=== PATIENT | male | born 1985 | race Two or more races ===

== ENCOUNTER 2019-04-19 12:08 | Inpatient (IN) | payer OTHER ==
[~2019-04-19] VITALS: Ht 182.9 cm; Wt 105.1 kg
[~2019-04-19 12:08] MED LIST: CEFAZOLIN 1,000 MG ONE; DEXAMETHASONE 4 MG/ML, 1ML ONE; ONDANSETRON 2MG/ML, 2ML ONE; PROPOFOL 10 MG/ML, 20ML ONE; ROCURONIUM 10MG/ML,5ML ONE; SUCCINYLCHOLINE 20 MG/ML, 10ML ONE
--- NOTE | 2019-04-19 12:34 | NUR ---
BIB BY EMS FROM [facility] C/O RLQ ABD PAIN SINCE 04/17 WITH N/V AT THAT TIME BUT NO N/V TODAY. [employer]PERATOR AT BEDSIDE. PT OOB AND CHANGED INTO GOWN, VSS, PAIN 05/19. CALL LIGHT W/I REACH. DR. AMOS AT BEDSIDE, ASSESSMENT REVIEWED AND POC DISCUSSED. QUESTIONS ANSWERED.
[2019-04-19] MEDS ORDERED: MORPHINE SULFATE 4 MG/ML, 1ML IVPush PRN ×2 (13:00→15:30)
[2019-04-19] MEDS ORDERED: ONDANSETRON 2MG/ML, 2ML IVPush ONE (13:00)
[2019-04-19] MEDS ORDERED: SODIUM CHLORIDE FLUSH 10ML SYR IVF ONE (13:00)
[2019-04-19 13:15] LABS: MICROSCOPIC NOT IND
[2019-04-19 13:16] LABS: BASOPHILS # (AUTO) 0.02 x10^3/uL (0-0.1); BASOPHILS % (AUTO) 0 % (0-1); EOSINOPHILS # (AUTO) 0.03 x10^3/uL (0-0.4); EOSINOPHILS % (AUTO) 0 % (1-7); LYMPHOCYTES # (AUTO) 0.49 x10^3/uL (1-3.4); LYMPHOCYTES % (AUTO) 4 % (22-44); MD NO; MEAN CORPUSCULAR HEMOGLOBIN 29.4 pg (27.5-34.5); MEAN CORPUSCULAR HGB CONC 32.7 g/dL (33.2-36.2); MEAN CORPUSCULAR VOLUME 89.9 fL (81-97); MEAN PLATELET VOLUME 9.2 fL (7.4-10.4); MONOCYTES % (AUTO) 5 % (2-9); NEUTROPHILS % (AUTO) 91 % (42-75); PLATELET COUNT 188 x10^3/uL (130-400); RED BLOOD COUNT 5.37 x10^6/uL (4.38-5.82)
[2019-04-19 13:21] LABS: CULTURE INDICATED? NO
[2019-04-19 13:23] LABS: ALBUMIN 4.2 g/dL (3.4-5.0); ANION GAP 5 mmol/L (5-15); CALCIUM 8.8 mg/dL (8.5-10.1); CHLORIDE 108 mmol/L (98-107)
[2019-04-19 13:27] LABS: ALANINE AMINOTRANSFERASE 28 U/L (12-78); ALKALINE PHOSPHATASE 69 U/L (45-117); TOTAL PROTEIN 7.6 g/dL (6.4-8.2)
[2019-04-19] MEDS ORDERED: IBUPROFEN 800 MG TABLET ONE (13:29)
[2019-04-19] MEDS ORDERED: ONDANSETRON 2MG/ML, 2ML ONE (13:42)
[2019-04-19] MEDS ORDERED: MORPHINE SULFATE 4 MG/ML, 1ML ONE (13:42)
[2019-04-19] MEDS ORDERED: OMNIPAQUE 350 MG/ML, 100ML BOTTLE ONE (14:06)
--- NOTE | 2019-04-19 14:23 | NUR ---
RECEIVED REPORT FROM JOBY SMITH AND ASSUMED CARE OF PT. PT RETURNING FROM CT. PT HAD BEEN MEDICATED PRIOR TO GOING TO CT AND STATES PAIN NOW A 2/10. PT IN CUSTODY WITH DEPUTY AT BEDSIDE.
[2019-04-19] MEDS ORDERED: PLEASE ENTER ALLERGIES MC SCH (14:30)
[2019-04-19] MEDS ORDERED: CEFOTETAN PMX 1GM/50ML 50 ML IV ONE (14:30)
[2019-04-19] MEDS ORDERED: CEFOTETAN PMX 1GM/50ML 50 ML ONE (14:30)
--- NOTE | 2019-04-19 15:27 | NUR ---
REPORT GIVEN TO COLIN SMITH IN OR.
[2019-04-19] MEDS ORDERED: BUPIVACAINE/EPI 0.5% 1:200K ONE (15:50)
[2019-04-19] MEDS ORDERED: FENTANYL PF 250 MCG/5ML ONE (16:04)
[2019-04-19] MEDS ORDERED: MIDAZOLAM 1 MG/ML, 2ML ONE (16:04)
[2019-04-19] MEDS ORDERED: ONDANSETRON 2MG/ML, 2ML IVPush PRN (17:00)
[2019-04-19] MEDS ORDERED: HYDROmorphone 1 MG/ML, 1ML INJ IV PRN (17:00)
[2019-04-19] MEDS ORDERED: METOCLOPRAMIDE 5 MG/ML, 2ML IV PRN (17:00)
[2019-04-19] MEDS ORDERED: OXYcodone 5 MG/5 ML ORAL.SOL UDC PO PRN (17:00)
[2019-04-19] MEDS ORDERED: KETOROLAC 30 MG/1 ML IV PRN (17:00)
[2019-04-19] MEDS ORDERED: PROMETHAZINE 25 MG/ML, 1ML IV PRN (17:00)
[2019-04-19] MEDS ORDERED: ALBUTEROL SULFATE 2.5 MG/3 ML NPPB PRN (17:00)
[2019-04-19] MEDS ORDERED: LABETALOL 5MG/ML, 20ML IV PRN (17:00)
[2019-04-19] MEDS ORDERED: hydrALAzine 20 MG/ML, 1ML IV PRN (17:00)
[2019-04-19] MEDS ORDERED: MEPERIDINE/PF 25MG/0.5ML IVPush PRN (17:00)
[2019-04-19] MEDS ORDERED: MEPERIDINE/PF 25MG/ML,1ML ONE (17:06)
[2019-04-19] MEDS ORDERED: KETOROLAC 30 MG/1 ML ONE (17:20)
[2019-04-19] MEDS ORDERED: FENTANYL PF 100 MCG/2ML ONE (17:20)
[2019-04-19] MEDS ORDERED: OXYcodone 5 MG/5 ML ORAL.SOL UDC ONE (17:21)
[2019-04-19] MEDS: FENTANYL PF 100 MCG/2ML IV PRN ×2 (17:26→17:33)
[2019-04-19] MEDS ORDERED: D5%-0.45NACL+KCL 20MEQ 1,000 ML IV SCH (18:23)
[2019-04-19 18:33] VITALS: BP 100/59
[2019-04-19] MEDS ORDERED: METRONIDAZOLE PMX 500MG/100ML 100 ML IV SCH (19:00)
[2019-04-19] MEDS ORDERED: ONDANSETRON 2MG/ML, 2ML IV PRN (19:00)
[2019-04-19] MEDS ORDERED: HYDROcodone/APAP 5/325 TABLET PO PRN (19:00)
[2019-04-19] MEDS ORDERED: LORazepam 1MG TABLET PO PRN (19:00)
[2019-04-19] MEDS ORDERED: LORazepam 2 MG/ML, 1ML IV PRN (19:00)
[2019-04-19] MEDS ORDERED: morphine SULFATE 10 MG/ML, 1ML IV PRN (19:00)
[2019-04-19] MEDS ORDERED: HYDROmorphone 2 MG/ML, 1ML IV PRN (19:30)
[2019-04-19] MEDS: POTASSIUM CHLORIDE 20 MEQ in LACTATED RINGERS 1,000 ML IV SCH (21:17)
[2019-04-19 23:56] VITALS: BP 100/58
[2019-04-20] MEDS: OXYcodone/APAP 5/325MG TABLET PO PRN ×3 (01:35→12:05)
[2019-04-20 01:54] VITALS: BP 101/57
[2019-04-20] MEDS ORDERED: CEFOTETAN PMX 1GM/50ML 50 ML IV SCH (03:00)
[2019-04-20] MEDS ORDERED: CEFTRIAXONE PMX 1GM/50ML 50 ML IV SCH (03:00)
[2019-04-20 05:46] LABS: BASOPHILS # (AUTO) 0.03 x10^3/uL (0-0.1); BASOPHILS % (AUTO) 0 % (0-1); EOSINOPHILS # (AUTO) 0.05 x10^3/uL (0-0.4); EOSINOPHILS % (AUTO) 0 % (1-7); LYMPHOCYTES # (AUTO) 0.89 x10^3/uL (1-3.4); LYMPHOCYTES % (AUTO) 7 % (22-44); MD NO; MEAN CORPUSCULAR HEMOGLOBIN 30.1 pg (27.5-34.5); MEAN CORPUSCULAR HGB CONC 33.2 g/dL (33.2-36.2); MEAN CORPUSCULAR VOLUME 90.5 fL (81-97); MEAN PLATELET VOLUME 9.6 fL (7.4-10.4); MONOCYTES # (AUTO) 0.66 x10^3/uL (0.2-0.8); MONOCYTES % (AUTO) 5 % (2-9); NEUTROPHILS # (AUTO) 10.95 x10^3/uL (1.8-6.8); NEUTROPHILS % (AUTO) 87 % (42-75); PLATELET COUNT 152 x10^3/uL (130-400); RED BLOOD COUNT 4.66 x10^6/uL (4.38-5.82)
[2019-04-20] MEDS ORDERED: ENOXAPARIN 40 MG/0.4 ML SQ SCH (06:00)
[2019-04-20 06:28] VITALS: BP 102/64
[2019-04-20] MEDS: POTASSIUM CHLORIDE 20 MEQ in LACTATED RINGERS 1,000 ML IV SCH (09:00)
[2019-04-20 12:28] VITALS: BP 116/71
== END 2019-04-20 13:35 | disposition home or self-care (01) | DRG 342 ==
LOC: ED 15:09 → EDIP 16:11 → 4NOR 18:15
PROVIDERS: ADMIT Hospitalist; ATTEND Hospitalist
PROC: 0DTJ4ZZ Resection of Appendix, Percutaneous Endoscopic Approach (ICD-10-PCS; principal; 2019-04-19 15:45)
DX: K35.80 Unspecified acute appendicitis (principal); R65.10 Systemic inflammatory response syndrome (SIRS) of non-infectious origin without acute organ dysfunction; J98.11 Atelectasis; F17.200 Nicotine dependence, unspecified, uncomplicated; K59.00 Constipation, unspecified; D72.829 Elevated white blood cell count, unspecified; F10.10 Alcohol abuse, uncomplicated; Z72.89 Other problems related to lifestyle
CPT/HCPCS: 36415; 74177; 80053; 81003; 83690; 85025; 87040; 88304; 88331; 99285; G0378; J0690; J1100; J1650; J1885; J2175; J2250; J2405; J2704; J3010; J3480; Q9967; J0330; J2270; J3490; J7120